=== PATIENT | female | born 1960 ===

== ENCOUNTER 2019-01-09 08:00 | Inpatient (IN) | payer OTHER ==
[~2019-01-09] VITALS: Ht 157.5 cm; Wt 95.7 kg
[2019-01-09] MEDS ORDERED: VYTORIN 10-401 EACH PO (08:49)
[2019-01-09] MEDS ORDERED: RESTORIL7.5 MG PO (08:49)
[2019-01-09] MEDS ORDERED: CYMBALT PO (08:49)
[2019-01-09] MEDS ORDERED: ZANTAC300 MG PO (08:50)
[2019-01-09] MEDS ORDERED: SINGULAIR10 MG PO (08:50)
[2019-01-09] MEDS ORDERED: COZAAR50 MG PO (08:50)
[2019-01-09] MEDS ORDERED: PROVENTIL IN (08:52)
[2019-01-09] MEDS ORDERED: [UNRECOGNIZED DRUG - OTHER] (08:52)
[2019-01-15] MEDS ORDERED: PROVENTIL HFA6.7 GM (13:34)
[2019-01-15] MEDS ORDERED: DULOXETINE HCL20 MG (13:34)
[2019-01-15] MEDS ORDERED: SYMBICORT (13:39)
[2019-01-18] MEDS ORDERED: OXYC1TAB9 PO (08:52)
[2019-01-18] MEDS ORDERED: INTEGRA PLUS C1 EACH PO (08:52)
[2019-01-18] MEDS ORDERED: XARELTO10 MG PO (08:52)
== END 2019-01-18 17:22 | DRG 470 ==
LOC: O/R 08:00 → SURG 01-15 09:35 → O/R 01-15 10:45 → SURH 01-15 18:56 → SURG 01-16 11:19
PROVIDERS: ADMIT Orthopaedic Surgery Sports Medicine
PROC: 0SRC0J9 Replacement of Right Knee Joint with Synthetic Substitute, Cemented, Open Approach (ICD-10-PCS; principal; 2019-01-15 10:45)
DX: M17.11 Unilateral primary osteoarthritis, right knee (principal); Z96.651 Presence of right artificial knee joint; G47.39 Other sleep apnea; E78.00 Pure hypercholesterolemia, unspecified

== ENCOUNTER 2021-10-09 10:23 | Inpatient (IN) | payer OTHER ==
[~2021-10-09] VITALS: Ht 157.5 cm; Wt 95.3 kg
[~2021-10-09 10:23] MED LIST: COZAAR50 MG PO; CYMBALT PO; DULOXETINE HCL20 MG; INTEGRA PLUS C1 EACH PO; OXYC1TAB9 PO; PROVENTIL HFA6.7 GM; PROVENTIL IN; RESTORIL7.5 MG PO; SINGULAIR10 MG PO; SYMBICORT; VYTORIN 10-401 EACH PO; XARELTO10 MG PO; ZANTAC300 MG PO; [UNRECOGNIZED DRUG - OTHER]
[2021-10-14] MEDS ORDERED: CEFADROXIL500 MG PO (06:40)
[2021-10-14] MEDS ORDERED: XARELTO10 MG PO (06:40)
[2021-10-14] MEDS ORDERED: INTEGRA PLUS C1 EACH PO (06:40)
[2021-10-14] MEDS ORDERED: OXYC1TAB9 PO (06:40)
== END 2021-10-15 10:59 | disposition home or self-care (01) | DRG 470 ==
LOC: O/R 10-12 05:28 → SURH 10-12 07:00
PROVIDERS: ADMIT Orthopaedic Surgery Sports Medicine; ATTEND Orthopaedic Surgery Sports Medicine
PROC: 0SRC0J9 Replacement of Right Knee Joint with Synthetic Substitute, Cemented, Open Approach (ICD-10-PCS; principal; 2021-10-12 07:00)
DX: M17.11 Unilateral primary osteoarthritis, right knee (principal); I10 Essential (primary) hypertension; Z20.822 Contact with and (suspected) exposure to COVID-19; E66.8 Other obesity